=== PATIENT | male | born 1935 | race Caucasian/White ===

== ENCOUNTER 2025-08-12 17:24 | Emergency (ER) | payer OTHER ==
[~2025-08-12] VITALS: Ht 177.8 cm; Wt 127.3 kg
--- NOTE | 2025-08-12 18:03 | Physician Documentation ---
History of Present Illness ~ Chief Complaint: Mechanical Fall Stated Complaint: FALL/HEAD WOUND ON THINNERS Time Seen by MD: 18:00 HPI Patient is a very pleasant 89-year-old male that presents to the emergency department after sustaining a mechanical ground level fall. Patient reports that he went to step up onto a curb tripped and fell forward falling onto his hand and striking the left side of his head. Patient reports that he has a small abrasion to his head and abrasions to his left hand. Patient reports that he takes blood thinners. Patient reports that he may or may not have lost consciousness he is unsure if it was it was briefly. Patient reports mild headache. Patient denies visual changes changes in speech, changes in mentation, nausea or vomiting at this time. No other symptoms reported at this time. Medication Reconciliation Allergies: Coded Allergies: morphine (Verified Allergy, Unknown, 08/12/25) Review of Systems ROS As stated above in the HPI, otherwise all systems are reviewed and negative. Physical Exam Vital Signs: Temperature: 98.8, Source: Temporal, Heart Rate: 74, Respiratory Rate: 18, BP: 146/94, Pulse Oximetry: 99, Weight: 127.270 Oxygen Flow Rate: 0 Physical Exam VITALS: Reviewed and as above. GENERAL: Alert, no apparent distress. HEENT: Normocephalic, atraumatic, PERRL, EOMI, dry mucosa, no erythema RESPIRATORY: Lungs clear, normal breath sounds, no respiratory distress. CHEST: No accessory muscle use, no retractions CV: Regular rate, rhythm, no edema, no murmur, No: JVD GI: Soft, non-tender, bowels sounds present, no rebound, guarding, or rigidity BACK: No CVA tenderness, or swelling MUSCULOSKELETAL No deformities, no edema, skin tear to the anterior left forehead, laceration to the left thumb, tenderness to the forehead around the area of skin tear during examination. SKIN: Warm and dry, skin tear to the anterior left forehead, small laceration to the left thumb. NEURO: Oriented x4, No motor or sensory deficit PSYCH: Normal mood and affect, no agitation Progress Results/Orders Results/Orders Orders - TIANNA DIAZ EVENT DESIGNER Ct Head (08/12/25 18:10) Ct Cervical Spine (08/12/25 18:10) Completed Orders - TIANNA DIAZP Ct Head (08/12/25 18:10) Ct Cervical Spine (08/12/25 18:10) Vital Signs 08/12/25 17:26 Temp 98.8 Pulse 74 Resp 18 B/P (MAP) 146/94 Pulse Ox 99 O2 Flow Rate 0 Medical Decision Making Additional information obtaine: other Findings Chief Complaint: Ground-level fall with head trauma History of Present Illness: 89-year-old male presented to the emergency department following a mechanical ground-level fall. Patient tripped while stepping onto a curb, fell forward onto his hand, and struck the left side of his head. Patient reports possible brief loss of consciousness but is uncertain. He endorses mild headache but denies visual changes, speech changes, altered mentation, nausea, or vomiting. Patient is on chronic anticoagulation therapy. Physical Examination: Small abrasion on left side of head. Abrasions on left hand with small skin tear on forehead and laceration on left thumb. Neurologic examination normal at baseline. 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 Initial head CT demonstrated no intracranial hemorrhage. Risk Assessment: Patients on anticoagulants have an elevated risk of intracranial hemorrhage after head trauma, with immediate ICH rates of appr oximately 8.5% and delayed ICH rates of approximately 1.7%. However, the [employer] guidelines indicate that neurologically intact patients on anticoagulants or antiplatelet agents (excluding aspirin alone) with negative initial head CT can be safely discharged without routine repeat imaging or observation admission specifically for head injury. The risk of delayed intracranial hemorrhage requiring neurosurgical intervention in this population is very low, with studies showing rates of clinically significant delayed hemorrhage of 0.3-2%. [1-4] Given this patient's normal neurologic examination, negative head CT, and lack of high-risk features (GCS 15, no ongoing neurologic symptoms beyond mild headache), the risk of clinically significant delayed intracranial hemorrhage is minimal. [1] Wound Management: Small skin tear on forehead and laceration on left thumb were successfully repaired with Steri-Strips, which is appropriate for low-tension wounds with linear edges. [5-6] Disposition Decision: Patient is appropriate for discharge home based on: Normal neurologic examination at baseline Negative initial head CT scan GCS 15 on presentation Absence of ongoing concerning neurologic symptoms Evidence supporting safe discharge of anticoagulated patients meeting these criteria [1] Discharge Planning: Provided comprehensive verbal and written discharge instructions regarding symptoms of delayed hemorrhage including severe headache, vomiting, confusion, visual changes, speech changes, altered mentation, and somnolence [1][7-8] Strict return precautions given for any neurologic changes, worsening headache, visual changes, lightheadedness, or speech changes Recommended responsible adult supervision for first 24 hours post-injury [8] Outpatient follow-up recommended for fall risk assessment and risk-benefit evaluation of ongoing anticoagulation therapy [1][9] Wound care instructions provided for Steri-Strip sites Complexity: This case represents moderate complexity medical decision-making given the patient's advanced age, anticoagulation therapy, mild traumatic brain injury with possible loss of consciousness, and need to weigh risks of delayed intracranial hemorrhage against benefits of discharge. Multiple diagnostic studies were reviewed and interpreted. The decision required consideration of current evidence-based guidelines for management of anticoagulated patients with mild TBI. [1] Differential Dx:Considerations: Include: Closed head injury, Cardiac injury, Fracture(s), Intraabdominal injury, Pneumothorax, Cerebral contusion, Pulmonary contusion, Spine injury, Tracheal injury, Urological injury, Vascular injury, Abrasion(s), Contusion(s), Foreign body(s), Hematoma(s), Laceration(s), Encephalopathy, Other Departure Disposition: 01 HOME / SELF CARE / HOMELESS Impression: Primary Impression: Fall Additional Impressions: Superficial bruising Skin tear Laceration Musculoskeletal pain Condition: Stable Discharge Instructions: Fall Prevention in the Home, Adult, [id number], Laceration Care, Adult, [id number], Musculoskeletal Pain Additional Instructions: What happened: You came to the emergency department after falling and hitting your head and hand. You had CT scans of your head and neck that showed no bleeding or broken bones. Small cuts on your forehead and thumb were closed with special tape called Steri-Strips. Taking care of your wounds: Keep the Steri-Strips dry and in place for 7-10 days. They will fall off on their own. You may gently clean around the Steri-Strips with a damp cloth, but do not scrub or soak them. If the Steri-Strips fall off before 5 days, cover the area with a clean bandage. Watch for signs of infection: increasing redness, warmth, swelling, pus, or red streaks spreading from the wound. Your blood thinner medication: Do not stop taking your blood thinner unless your doctor tells you to stop. Your regular doctor will help decide when it is safe to continue your blood thinner and whether any changes are needed. [2] Contact your regular doctor within 1-2 days to discuss your fall and medications. What to watch for - Go to the emergency department immediately if you develop: Because you take blood thinners, you have a higher risk of bleeding inside your head that can develop hours or even days after your fall. [1][3] Call 911 or return to the emergency department right away if you notice: Severe headache or headache that gets worse Repeated vomiting Confusion or trouble thinking clearly Difficulty speaking or slurred speech Vision problems (blurry vision, double vision, or loss of vision) Weakness or numbness in your arms, legs, or face Difficulty walking or loss of balance Extreme drowsiness or difficulty staying awake Seizures (shaking or convulsions) Clear or bloody fluid draining from your nose or ears Any other symptoms that concern you Activity instructions: Have someone stay with you for the next 24 hours to watch for warning signs. Avoid driving for at least 24 hours. Avoid alcohol for at least 24 hours. Do not take sleeping pills unless approved by your doctor. Rest as needed, but you do not need to stay awake. Avoid activities that could cause another fall or head injury. Fall prevention: [1] Because you had a fall, it is important to prevent future falls: Remove tripping hazards like loose rugs and clutter from your home. Use good lighting, especially at night. Use handrails on stairs. Wear sturdy, non-slip shoes. Consider using a cane or walker if you feel unsteady. Ask your doctor to review all your medications, as some can increase fall risk. Follow-up care: Contact your primary care doctor within 1-2 days to schedule a follow-up appointment. Your doctor should evaluate your fall risk and review whether your blood thinner medication is still the best choice for you. [1] If you do not have a primary care doctor, please call to establish care with one. When to call your doctor (non-emergency): Mild headache that improves with [id number] pain medication Questions about your wound care Signs of wound infection (redness, warmth, swelling, or pus) Any other concerns about your recovery Pain management: You may take acetaminophen (Tylenol) for headache or pain. Avoid ibuprofen (Advil, Motrin) and aspirin unless your doctor says it is okay, as these can increase bleeding risk. Important reminders: Even though your CT scans were normal, bleeding can rarely develop later, especially because you take blood thinners. [1][3] Most people recover completely from falls like yours, but it is important to watch for warning signs. When in doubt, it is always safer to return to the emergency department or call 911. Referrals: NO PRIMARY CARE PROVIDER (PCP) Education Educated: Patient Educated regarding: diagnosis, treatment, need for follow up Signature Scribe Signature: A Attestation: Scribed for Tianna Diaz by THOMAS Funes . 08/12/25 21:26 TIANNA DIAZ Aug 12, 2025 18:03
--- NOTE | 2025-08-12 18:59 | RADIOLOGY REPORT ---
CT CT HEAD INDICATION: Fall, head strike, blood thinners COMPARISON: None TECHNIQUE: CT of the head without intravenous contrast. RADIATION DOSE: CTDIvol: 68 mGy, DLP: 1275 mGy*cm FINDINGS: There is no evidence of acute intracranial hemorrhage, extra-axial collection, mass effect, midline shift, herniation or hydrocephalus. The ventricles, sulci and cisterns are age appropriate. The mansfield-white differentiation is intact. Mucosal thickening of the right maxillary sinus. The surrounding soft tissues and osseous structures are unremarkable. IMPRESSION: 1. No acute intracranial abnormality.
--- NOTE | 2025-08-12 19:23 | RADIOLOGY REPORT ---
CLINICAL HISTORY: Fall, head strike, blood thinners. TECHNIQUE: CT of the cervical spine was performed without intravenous contrast. This exam was performed according to our departmental dose optimization program. Up-to-date CT equipment and radiation dose reduction techniques are utilized as appropriate. CTDIvol: 20.3 mGy; DLP: 489.5 mGy-cm. COMPARISON: None available. FINDINGS: Dobby Loom Fixer: Unremarkable. Alignment: Reversal and mild dextroconvex curvature of the cervical spine with degenerative-related minimal retrolistheses of C4 on C5 and C5 on C6. No traumatic malalignment. Atlantoaxial joint: The dens is intact, the lateral masses of C1 are normally aligned relative to C2, and the atlantodental interval is normal. Mild degenerative changes of the middle atlantoaxial joint. Bones: No evidence of an acute fracture. Vertebral body heights are maintained. Posterior elements are intact. Osseous structures are demineralized. Discs: Multilevel disc space narrowing that is severe from the C3-C4 through the C6-C7 levels. Degenerative changes/Spinal canal/Neuroforamen: Overall severe multilevel degenerative changes, characterized by varying degrees of anterior endplate osteophytes, posterior disc bulges/osteophyte complexes, bilateral facet arthropathy, and bilateral uncovertebral joint hypertrophy resulting in varying degrees of spinal canal stenoses (notably at least moderate from the C3-C4 through C5-C6 levels) and multilevel high-grade bilateral neuroforaminal narrowing. Soft tissues: No prevertebral soft tissue swelling. Visualized neck soft tissues are normal. Other: Small left mastoid effusion. Mild calcific atherosclerosis of the carotid bifurcations. Partially imaged portions of the lung apices are clear. IMPRESSION: 1. No acute fracture or traumatic malalignment of the cervical spine. 2. Multilevel degenerative changes of the cervical spine as described in the findings.
[2025-08-12 21:35] VITALS: BP 180/100; PULSE 88; RESP 16; TEMP 98; O2SAT 98
== END 2025-08-12 21:37 | disposition home or self-care (01) ==
LOC: ER 17:26
DX: S61.012A Laceration without foreign body of left thumb without damage to nail, initial encounter (principal); S00.91XA Abrasion of unspecified part of head, initial encounter; Z88.5 Allergy status to narcotic agent; Z79.01 Long term (current) use of anticoagulants; W10.1XXA Fall (on)(from) sidewalk curb, initial encounter; Y93.89 Activity, other specified; Y92.89 Other specified places as the place of occurrence of the external cause; Y99.8 Other external cause status
CPT/HCPCS: 70450; 72125; 99284; A6449